=== PATIENT | male | born 1970 | race Hispanic/Latino ===

== ENCOUNTER 2025-04-12 11:21 | Emergency (ER) | payer SELFPAY ==
[2025-04-12] MEDS ORDERED: Famotidine 20 MG TAB ONE (12:11)
[2025-04-12] MEDS ORDERED: diphenhydrAMINE 25 MG CAP ONE (12:11)
[2025-04-12] MEDS ORDERED: Dexamethasone 10 MG/ML VIAL ONE (12:11)
== END 2025-04-12 12:41 | disposition home or self-care (01) ==
LOC: NAV ERS 11:21
DX: T63.441A Toxic effect of venom of bees, accidental (unintentional), initial encounter (principal); I10 Essential (primary) hypertension
CPT/HCPCS: 96372; 99282; J1100